=== PATIENT | female | born 1945 | race Caucasian/White ===

== ENCOUNTER 2016-07-24 16:11 | Observation (INO) | payer MEDICARE, OTHER ==
[2016-07-24] MEDS ORDERED: Sodium Chloride 0.9% 10 ML Syringe FLUSH PRN ×2 (16:31→20:20)
--- NOTE | 2016-07-24 16:34 | EDM.PDOC ---
[id number] 4d illness Time Seen by Provider: 07/24/16 16:34 Source: Reports: Patient, Family History Limitations: Reports: No limitations - History of Present Illness INITIAL COMMENTS - FREE TEXT/NARRATIVE: pt arrived giving a history that everytime she walks or exercises that she gets chest pain. She is pain free at this time. Pt had a fairly extended episode of chest pain yesterday when she was working at [employer] and she took the gargage out. Timing/Duration: Reports: Hour(s):, Other (pt has not had chest pain today. Dr abad sent the pt from the clinic to finish the workup and possibly transfer or admit. ) Location, General: Reports: head, chest Quality: Reports: Sharp, Stabbing, Other (Pt does not get sweaty when she gets the pain. ) Associated Symptoms: Reports: chest pain, shortness of breath, other ( She is sob when she has the pain. She did have a chest xray at the clinic which was normal. ) - Related Data Allergies/ADRs: Allergies Allergy/AdvReac Type Severity Reaction Status Date / Time latex Allergy Blisters Verified 03/05/15 08:07 tramadol Allergy Hallucinati Verified 03/05/15 08:07 ons Home Meds: Home Meds Hydrochlorothiazide 25 mg PO DAILY 11/09/14 [History] Estropipate 0.75 mg PO DAILY 03/02/15 [History] Levothyroxine [Synthroid] 100 mcg PO DAILY 03/02/15 [History] Aspirin 81 mg PO DAILY tab.chew 07/25/16 [Rx] Enoxaparin [Lovenox] 40 mg SUBCUT BEDTIME syringe 07/25/16 [Rx] Metoprolol Tartrate [Lopressor] 50 mg PO Q12H tablet 07/25/16 [Rx] Nitroglycerin [IJP: Nitroglycerin] 0.4 mg SL Q5M PRN #0 tablet, sublingual 07/25 [Rx] Past Medical History Cardiovascular History: Reports: Hypertension Endocrine/Metabolic History: Reports: Hypothyroidism - Past Surgical History Other Female Surgeries/Procedures: Partial hysterectomy Social & Family History - Tobacco Use Smoking Status *Q: Former Smoker Years of Tobacco use: 40 Packs/Tins Daily: 0.3 Used Tobacco, but Quit: Yes Month Tobacco Last Used: 04/1998 Second Hand Smoke Exposure: No - Caffeine Use Caffeine Use: Reports: Coffee - Recreational Drug Use Recreational Drug Use: No ED ROS GENERAL - Review of Systems Review Of Systems: See Below ED EXAM, GENERAL - Physical Exam Exam: See Below Free Text/Narrative:: Pt arrived with acute pain in the left chest which occurs when she exercises. She is painfree at this time. Pt was sent over by Dr abad who had talked to Dr Coleman before she left the clinic. She had an elevated cpk and he wanted a ckmb. Exam Limited By: No limitations General Appearance: alert, anxious Ears: normal TMs Nose: normal inspection Throat/Mouth: Normal inspection Head: atraumatic Neck: normal inspection Respiratory/Chest: no respiratory distress Cardiovascular: regular rate, rhythm, other ( Pt is painfree at this time. ) GI/Abdominal: soft, non tender (Female) Exam: Deferred Rectal (Female) Exam: Deferred Back Exam: normal inspection Extremities: normal inspection Neurological: alert, oriented, normal cognition Course - Vital Signs Last Recorded V/S: Last Vital Signs Temp 36.5 C 07/25/16 12:45 Pulse 72 07/25/16 14:43 Resp 16 07/25/16 12:45 BP 157/93 H 07/25/16 14:43 Pulse Ox 96 07/25/16 12:45 - Orders/Labs/Meds Labs: Laboratory Tests 07/24/16 07/24/16 Range/Units 16:31 16:45 Creatine Kinase 256 H (26-192) U/L Troponin I < 0.017 (0.000-0.056) ng/mL TSH, Ultra Sensitive 1.732 (0.358-3.740) uIU/mL Meds: Medications Discontinued Medications Generic Name Dose Route Start Last Admin Trade Name Freq PRN Reason Stop Dose Admin Acetaminophen 650 mg 07/24/16 20:20 Tylenol PO Q4H PRN Pain (Mild 1-3)/fever Al Hydroxide/Mg Hydroxide 30 ml 07/24/16 20:20 Mag-Al Plus PO Q4H PRN Heartburn Aspirin 324 mg 07/24/16 18:41 07/24/16 18:55 Aspirin PO 07/24/16 18:42 324 mg ONETIME ONE Administration Aspirin 81 mg 07/25/16 09:00 07/25/16 13:14 Aspirin PO Not Given DAILY [facility] Enoxaparin Sodium 40 mg 07/24/16 22:30 07/24/16 23:06 Lovenox SUBCUT 40 mg BEDTIME MARITZA Administration Estropipate 0.75 mg 07/25/16 09:00 07/25/16 13:14 Estropipate PO Not Given DAILY MARITZA Hydrochlorothiazide 25 mg 07/25/16 09:00 07/25/16 13:15 Hydrochlorothiazide PO 25 mg DAILY MARITZA Administration Levothyroxine Sodium 100 mcg 07/25/16 07:30 07/25/16 13:14 Synthroid PO Not Given ACBREAKFAST [facility] Metoprolol Tartrate 50 mg 07/25/16 15:00 07/25/16 14:43 Lopressor PO 50 mg Q12H MARITZA Administration Morphine Sulfate 2 mg 07/24/16 20:20 Morphine IVPUSH Q30M PRN Pain (severe 7-10) Nitroglycerin 0.4 mg 07/24/16 20:20 Nitrostat SL Q5M PRN Chest Pain Ondansetron HCl 4 mg 07/24/16 20:20 Zofran IV Q4H PRN Nausea/Vomiting Oxycodone HCl 5 mg 07/24/16 20:20 Oxycodone PO Q4H PRN Pain (moderate 4-6) Pantoprazole Sodium 40 mg 07/24/16 20:20 07/25/16 13:14 Protonix PO Not Given ACBREAKFAST [facility] Sodium Chloride 10 ml 07/24/16 16:31 07/24/16 17:14 Saline Flush FLUSH 10 ml ASDIRECTED PRN Administration Keep Vein Open Sodium Chloride 10 ml 07/24/16 20:20 Saline Flush FLUSH ASDIRECTED PRN Keep Vein Open - Re-Assessments/Exams Free Text/Narrative Re-Assessment/Exam: 07/24/16 18:45 Dr Abad sent pt from the clinic for admission or transfer. Her ckmb was elevated at 6.7--borderline. Her chest xray was normal. Her trop was normal. 07/24/16 18:47 This was discussed with both Dr Coleman and Dr abad and a decision was made to admit her and stress her. Departure - Departure Time of Disposition: 18:48 Disposition: Admitted As Inpatient 64 Reason for Transfer *Q: Primary PCI Indicated Condition: fair Clinical Impression: Unstable angina
[2016-07-24] MEDS ORDERED: Aspirin 81 MG Tab.Chew PO ONE (18:41)
--- NOTE | 2016-07-24 19:49 | PCM.HP ---
H&P History of Present Illness - General Date of Service: 07/24/16 Admit Problem/Dx: Admission Diagnosis/Problem Admission Diagnosis/Problem Chest pain Source of Information: Patient, Provider, RN notes reviewed History Limitations: Reports: No limitations - History of Present Illness Initial Comments - Free Text/Narative: This patient is a 70-year-old woman who is admitted through the emergency department to observation status for further evaluation and management of chest pain. She denies any preceding history of coronary artery disease, reports that she had a coronary angiogram approximately 20 years ago that was interpreted as negative. Over the past 5 weeks has developed exertional chest pressure, pain occurs in the central chest and radiates to the back. Over the course of the past 5 weeks she is noted that the pain has started to come on with lower levels of exertion and lasts longer with higher level of intensity. All of the episodes have occurred with activity and she reports symptoms as being very intense. She has noted associated nausea as well as shortness of breath. Over the past few days the pain seems to be worse and in addition to radiate to the back she is noted some pain in her right jaw and right arm. She has had no rest pain and no nocturnal pain to this point. Other than activity she is noted no precipitating or relieving factors. Risk factors for coronary artery disease include a [id number] smoking history, she quit smoking approximately 10 years ago. Other risk factors include hypercholesterolemia, hypertension, and a strongly positive family history. - Related Data Allergies/Adverse Reactions: Allergies Allergy/AdvReac Type Severity Reaction Status Date / Time latex Allergy Blisters Verified 03/05/15 08:07 tramadol Allergy Hallucinati Verified 03/05/15 08:07 ons Home Medications: Home Meds Hydrochlorothiazide 25 mg PO DAILY 11/09/14 [History] Estropipate 0.75 mg PO DAILY 03/02/15 [History] Levothyroxine [Sythroid] 100 mcg PO DAILY 03/02/15 [History] Past Medical History Cardiovascular History: Reports: Hypertension Endocrine/Metabolic History: Reports: Hypothyroidism - Past Surgical History Other Female Surgeries/Procedures: Partial hysterectomy Social & Family History - Tobacco Use Smoking Status *Q: Former Smoker Years of Tobacco use: 40 Packs/Tins Daily: 0.3 Used Tobacco, but Quit: Yes Month Tobacco Last Used: 04/1998 Second Hand Smoke Exposure: No - Caffeine Use Caffeine Use: Reports: Coffee - Recreational Drug Use Recreational Drug Use: No H&P Review of Systems - Review of Systems: Review Of Systems: See Below General: Reports: no symptoms HEENT: Reports: no symptoms Pulmonary: Reports: No Symptoms Cardiovascular: Reports: chest pain. Denies: palpitations, dyspnea on exertion , orthopnea, PND, edema, lightheadedness, syncope Gastrointestinal: Reports: No symptoms Genitourinary: Reports: no symptoms Musculoskeletal: Reports: no symptoms Skin: Reports: no symptoms Psychiatric: Reports: no symptoms Neurological: Reports: No Symptoms Hematologic/Lymphatic: Reports: no symptoms Immunologic: Reports: no symptoms Exam - Exam Exam: See Below - Vital Signs Vital Signs: Last Vital Signs Temp 97.9 F 07/24/16 16:52 Pulse 62 07/24/16 18:21 Resp 20 07/24/16 18:21 BP 185/88 H 07/24/16 18:21 Pulse Ox 94 L 07/24/16 18:21 Weight: 180 lb - Exam Quality Assessment: DVT prophylaxis General: alert, oriented, cooperative HEENT: Conjunctiva clear, EOMI, Hearing intact, Mucosa moist & pink, Nares patent, Normal nasal septum, Posterior pharynx clear, Pupils equal, Pupils reactive Neck: supple, trachea midline, +2 carotid pulse wo bruit Lungs: Clear to auscultation, Normal respiratory effort Cardiovascular: regular rate, regular rhythm, normal S1, normal S2, systolic murmur. No: diastolic murmur Abdomen: normal bowel sounds, soft Back Exam: normal inspection, full range of motion, NT Extremities: 3, normal inspection, 10 Skin: warm, dry, intact Neurological: cranial nerves intact, strength equal bilateral, normal speech, normal tone, sensation intact. No: focal deficit Neuro Extensive - Mental Status: alert, oriented x3, normal mood/affect, normal cognition, memory intact - Patient Data Lab Results last 24 hrs: Laboratory Results - last 24 hr 07/24/16 07/24/16 Range/Units 16:31 16:45 Creatine Kinase 256 H (26-192) U/L Troponin I < 0.017 (0.000-0.056) ng/mL TSH, Ultra Sensitive 1.732 (0.358-3.740) uIU/mL *Q Meaningful Use (ADM) - VTE *Q VTE Criteria *Q: - VTE Risk Assess *Q Each Risk Factor Represents 1 Point: Obesity (BMI greater than 30) Total Score 1 Point Risk Factors: 1 Each Risk Factor Represents 2 Points: Age 60 - 74 Years Total Score 2 Point Risk Factors: 2 Each Risk Factor Represents 3 Points: None Total Score 3 Point Risk Factors: 0 Each Risk Factor Represents 5 Points: None Total Score 5 Point Risk Factors: 0 Venous Thromboembolism Risk Factor Score *Q: 3 - Stroke *Q Stroke Criteria *Q: - AMI *Q AMI Criteria *Q: Problem List Initiated/Reviewed/Updated: Yes Orders Last 24hrs: Active Orders 24 hr Category Date Time Status Patient Status Manage Transfer [TRANSFER] Routine ADT 07/24/16 19:31 Active Cardiac Monitoring [RC] .As Directed Care 07/24/16 19:31 Active EKG Documentation Completion [RC] ASDIRECTED Care 07/24/16 16:34 Active Saline Lock Insert [OM.PC] Routine Oth 07/24/16 16:31 Ordered Resuscitation Status Routine Resus Stat 07/24/16 19:32 Ordered EKG 12 Lead [EK] Routine Ther 07/24/16 16:34 Ordered Assessment/Plan Comment:: ASSESSMENT AND PLAN EXERTIONAL CHEST PAIN-symptoms have occurred over the last 5 weeks am a and seem to be progressing, now occurring at lower levels of activity with increased intensity and duration. At this point has not had rest pain or nocturnal pain. She has several risk factors including a [id number] smoking history(stopped smoking 10 years ago), hypertension, strongly positive family history, and hypercholesterolemia. -Serial troponin levels -Exercise Cardiolite study in the a.m. -Aspirin 81 mg daily HYPERTENSION -Monitor blood pressure during hospital stay -Continue outpatient medications HYPERCHOLESTEROLEMIA -Continue outpatient statin therapy MAINTENANCE ISSUES -DVT prophylaxis; Lovenox 40 mg by mouth daily -GI prophylaxis; Protonix 40 mg by mouth daily -Ferrara catheter; not indicated -Nutrition; regular diet -Nicotinic dependence; not required CODE STATUS-FULL CODE ADMISSION STATUS-this patient will be admitted to observation status, expect no more than a one night hospital stay for evaluation and management of problems as outlined above. DISPOSITION-anticipate discharge to home after the hospital stay. PRIMARY CARE PROVIDER-Dr. Abad
[2016-07-24] MEDS ORDERED: Nitroglycerin 0.4 MG Tab.SL SL PRN (20:20)
[2016-07-24] MEDS ORDERED: Acetaminophen 325 MG Tab PO PRN (20:20)
[2016-07-24] MEDS ORDERED: Ondansetron 4 MG/2 ML SDV IV PRN (20:20)
[2016-07-24] MEDS ORDERED: Aluminum Hydroxide/Magnesium Hydroxide/Simethicone Susp 30 ML Cup PO PRN (20:20)
[2016-07-24] MEDS ORDERED: oxyCODONE 5 MG Tab PO PRN (20:20)
[2016-07-24] MEDS ORDERED: Morphine 2 MG/ML Syringe IVPUSH PRN (20:20)
[2016-07-24] MEDS ORDERED: Enoxaparin 40 MG/0.4 ML Syringe SUBCUT SCH (22:30)
[2016-07-24] MEDS: Pantoprazole 40 MG Tab.CR PO SCH (23:07)
[2016-07-25] MEDS ORDERED: Levothyroxine 100 MCG Tab PO SCH (07:30)
[2016-07-25] MEDS ORDERED: Hydrochlorothiazide 25 MG Tab PO SCH (09:00)
[2016-07-25] MEDS ORDERED: Aspirin 81 MG Tab.Chew PO SCH (09:00)
--- NOTE | 2016-07-25 13:04 | NM ---
Myocardial Perf Spect Multi HISTORY: Chest pain Rest SPECT cardiac imaging was obtained following intravenous administration of 11.1 mCi of Tc 99m M yoview. At peak exercise, 29.5 mCi of Tc 99m Myoview were administered intravenously and stress SPECT cardia c imaging was obtained. FINDINGS: On the stress images there is a large perfusion defect involving the distal aspect of the anterior and lateral saucedo left ventricle. Much of this reperfuses on the rest images consistent wit h reversible ischemia. There are small fixed perfusion defects at the anteroseptal wall and inferior lateral wall left ventricle distally. No other perfusion abnormalities identified. Left ventricular wall motion appears satisfactory. Calculated left ventricular ejection fraction is 50% on the rest images and 47% on the stress imagin g. IMPRESSION: 1. Fairly prominent area of reversible ischemia distal anterior to anterolateral wall left ventricle . 2. Small fixed defects consistent infarct are seen at the distal anteroseptal wall and distal inferi or lateral wall left ventricle. 2. Calculated left ventricular ejection fraction is 50% on the rest images and 47% on the stress lia ging.
[2016-07-25] MEDS: Pantoprazole 40 MG Tab.CR PO SCH (13:14)
--- NOTE | 2016-07-25 14:39 | STRESS ---
DATE OF SERVICE: 07/25/2016 PROCEDURE PERFORMED: Exercise Cardiolite study. INDICATION: Recent exertional chest pain. TECHNIQUE: Ms. Salinas is a 70-year-old woman. She was exercised for 3 minutes and 39 seconds on the Riaz protocol for the exercise portion of the exercise Cardiolite study. She completed 39 seconds of stage II at 2.5 miles/hour and 12 degrees elevation. Test was stopped secondary to symptoms of chest pain and having reached greater than 85% of predicted maximal heart rate. She reached a rate pressure product of 25,600 and a workload of 4.6 METS. Resting heart rate was 73 and went to 136 with exercise. This was equal to 92% of predicted maximal heart rate. Resting blood pressure was 175/92 and went to 235/93 with exercise. Resting ECG; sinus rhythm, rate of 61, normal axis and intervals. There is very slight ST-segment depression present in the lateral leads and also in the inferior leads. Similar findings were noted on the post hyperventilation and standing ECGs. Frequent premature ventricular complexes were noted throughout the test, occasionally occurring in a bigeminal pattern. With exercise, she developed symptoms of chest pain even during the first stage of the Riaz protocol. At the end of the exercise, she had 2-[address]-segment depression in the lateral leads,1-[address]-segment depression in the anterior leads, and [address]-segment depression in the inferior leads. Her pain resolved after exercise, did not require reversal. IMPRESSION: Early positive treadmill exercise portion of the exercise Cardiolite study. She was able to reach greater than 85% of predicted maximal heart rate at this limited level of exercise. Jaron Telles MD /[id number]
[2016-07-25 14:43] VITALS: BP 157/93
--- NOTE | 2016-07-25 14:59 | PCM.DCSUM1 ---
Discharge Summary - Hospital Course Brief History: Ms. Salinas is a 70-year-old woman who is admitted to observation status through the emergency department for further evaluation and management of chest pain. - Discharge Data Discharge Date: 07/25/16 Discharge Disposition: DC/Tfer to Acute Hospital 02 Condition: Good - Discharge Diagnosis/Problem(s) (1) Unstable angina SNOMED Code(s): 5637678 ICD Code: I20.0 - UNSTABLE ANGINA Status: Acute Current Visit: Yes - Patient Summary/Data Hospital Course: Ms. Salinas is a 70-year-old woman who was admitted through the emergency department observation status for further evaluation and management of chest pain. For 5 weeks prior to admission she noted exertional chest pressure radiating to her mid back. Over that period of time symptoms progressed with increased duration, intensity, and decreased level of activity required to produce the symptoms. She had one episode of nocturnal chest pain, she felt this was precipitated by a nightmare. Otherwise has had no nocturnal or rest symptoms. She has several risk factors for coronary artery disease including a [id number] smoking history(stopped smoking 10 years ago), hypertension, hypercholesterolemia, and a strongly positive family history. She denies a personal history of diabetes. Over the past few days prior to admission she noted that the symptoms would come on with fairly likely exertion and now noted some radiation of the pain to her right jaw and right arm. On the day of admission and had no further symptoms of chest pain, initial evaluation in the emergency department showed no acute ST segment changes and a normal troponin level. She was admitted to observation status, serial troponin levels were obtained and all were found to be within normal range. On the day of transfer exercise Cardiolite study was obtained. She was only able to exercise for 39 seconds into the second stage of exercise and developed symptoms of chest pain during the first stage of exercise. EKG showed 2-[address] segment depression in the lateral leads, 1-[address] segment depression in the anterior leads, and [address] segment depression in the inferior leads. Cardiolite portion the study showed a decrease in ejection fraction with exercise as well as a relatively large area of ischemia in the anterolateral wall. There were 2 small areas of fixed perfusion defect felt to represent previous infarcts. These findings were reviewed With Dr. Ramirez, department of cardiology, who is recommended the patient be transferred for further evaluation. She will be transferred to [place] via [facility]. - Patient Instructions Diet: Usual Diet as Tolerated Activity: As Tolerated Other/Special Instructions: Patient will be transferred via [facility] to [facility]. - Discharge Plan Home Medications: Home Meds RX: Hydrochlorothiazide 25 mg PO DAILY 11/09/14 [History] RX: Estropipate 0.75 mg PO DAILY 03/02/15 [History] RX: Levothyroxine [Synthroid] 100 mcg PO DAILY 03/02/15 [History] RX: Aspirin 81 mg PO DAILY tab.chew 07/25/16 [Rx] RX: Enoxaparin [Lovenox] 40 mg SUBCUT BEDTIME syringe 07/25/16 [Rx] RX: Metoprolol Tartrate [Lopressor] 50 mg PO Q12H tablet 07/25/16 [Rx] RX: Nitroglycerin [IJP: Nitroglycerin] 0.4 mg SL Q5M PRN #0 tablet, sublingual 07/25/16 [Rx] Referrals: Marvel Abad MD [Primary Care Provider] - - Patient Data Vitals - Most Recent: Last Vital Signs Temp 97.7 F 07/25/16 12:45 Pulse 72 07/25/16 14:43 Resp 16 07/25/16 12:45 BP 157/93 H 07/25/16 14:43 Pulse Ox 96 07/25/16 12:45 Weight - Most Recent: 195 lb I&O - Last 24 hours: Intake & Output 07/24/16 07/25/16 07/25/16 22:59 06:59 14:59 Intake Total 480 100 Balance 480 100 Lab Results - Last 24 hrs: Laboratory Results - last 24 hr 07/24/16 07/24/16 07/25/16 Range/Units 22:02 23:00 05:34 Plt Count 239 (150-400) K/uL Sodium 140 (140-148) mmol/L Potassium 3.8 (3.6-5.2) mmol/L Chloride 103 (100-108) mmol/L Carbon Dioxide 27 (21-32) mmol/L Anion Gap 9.9 (5.0-14.0) mmol/L BUN 23 H (7-18) mg/dL Creatinine 0.9 (0.6-1.0) mg/dL Est Cr Clr Drug Dosing 48.79 mL/min Estimated GFR (MDRD) > 60 (>60) Glucose 139 H (74-106) mg/dL Calcium 8.8 (8.5-10.1) mg/dL Troponin I < 0.017 < 0.017 (0.000-0.056) ng/mL Med Orders - Current: Current Medications Acetaminophen (Tylenol) 650 mg PO Q4H PRN PRN Reason: Pain (Mild 1-3)/fever Al Hydroxide/Mg Hydroxide (Mag-Al Plus) 30 ml PO Q4H PRN PRN Reason: Heartburn Aspirin (Aspirin) 81 mg PO DAILY [facility] Last Admin: 07/25/16 13:14 Dose: Not Given Enoxaparin Sodium (Lovenox) 40 mg SUBCUT BEDTIME [facility] Last Admin: 07/24/16 23:06 Dose: 40 mg Estropipate (Estropipate) 0.75 mg PO DAILY [facility] Last Admin: 07/25/16 13:14 Dose: Not Given Hydrochlorothiazide (Hydrochlorothiazide) 25 mg PO DAILY [facility] Last Admin: 07/25/16 13:15 Dose: 25 mg Levothyroxine Sodium (Synthroid) 100 mcg PO ACBREAKFAST [facility] Last Admin: 07/25/16 13:14 Dose: Not Given Metoprolol Tartrate (Lopressor) 50 mg PO Q12H [facility] Last Admin: 07/25/16 14:43 Dose: 50 mg Morphine Sulfate (Morphine) 2 mg IVPUSH Q30M PRN PRN Reason: Pain (severe 7-10) Nitroglycerin (Nitrostat) 0.4 mg SL Q5M PRN PRN Reason: Chest Pain Ondansetron HCl (Zofran) 4 mg IV Q4H PRN PRN Reason: Nausea/Vomiting Oxycodone HCl (Oxycodone) 5 mg PO Q4H PRN PRN Reason: Pain (moderate 4-6) Pantoprazole Sodium (Protonix) 40 mg PO AC[facility]AKFAST [facility] Last Admin: 07/25/16 13:14 Dose: Not Given Sodium Chloride (Saline Flush) 10 ml FLUSH ASDIRECTED PRN PRN Reason: Keep Vein Open Discontinued Medications Aspirin (Aspirin) 324 mg PO ONETIME ONE Stop: 07/24/16 18:42 Last Admin: 07/24/16 18:55 Dose: 324 mg Sodium Chloride (Saline Flush) 10 ml FLUSH ASDIRECTED PRN PRN Reason: Keep Vein Open Last Admin: 07/24/16 17:14 Dose: 10 ml *Q Meaningful Use (DIS) - VTE *Q VTE Criteria *Q: - Stroke *Q Stroke Criteria *Q: - AMI *Q AMI Criteria *Q:
[2016-07-25] MEDS ORDERED: Metoprolol Tartrate 50 MG Tab PO SCH (15:00)
== END 2016-07-25 15:25 ==
LOC: JP.ED 16:11 → JP.MS 19:31 → JP.ED 19:39
PROVIDERS: ADMIT Hospitalist; ATTEND Hospitalist
DX: I20.0 Unstable angina (principal); I10 Essential (primary) hypertension; E03.9 Hypothyroidism, unspecified; Z79.82 Long term (current) use of aspirin; Z79.899 Other long term (current) drug therapy; Z91.040 Latex allergy status; Z88.8 Allergy status to other drugs, medicaments and biological substances; Z90.710 Acquired absence of both cervix and uterus; Z87.891 Personal history of nicotine dependence
CPT/HCPCS: 36415; 78452; 80048; 82550; 84443; 84484; 85049; 93005; 93017; 99285; A9270; A9500; G0378; J1650; J7050; 93010; 93018; 99284

== ENCOUNTER 2017-01-06 05:32 | Emergency (ER) | payer MEDICARE, OTHER ==
[2017-01-06 05:54] VITALS: BP 170/70
--- NOTE | 2017-01-06 06:19 | EDM.PDOC ---
ED HPI GENERAL MEDICAL PROBLEM - General Chief Complaint: Lower Extremity Injury/Pain Stated Complaint: GOUT PAIN IN RIGHT FOOT Time Seen by Provider: 01/06/17 06:00 Source of Information: Reports: Patient History Limitations: Reports: No Limitations - History of Present Illness INITIAL COMMENTS - FREE TEXT/NARRATIVE: 71-year-old female has an inflammatory reaction in the right MP joint of the large toe. She had a similar flare of pain this summer but it resolved after 10- 12 days, over the past 2 weeks she's had a marked increase in red meat intake and now has another flareup over the past 4 days. It's very tender with any movement, red and swollen. No streaks or fevers or chills. No trauma. Onset: Gradual Duration: Day(s): (4-5 days) Location: Reports: Lower Extremity, Right (The MP joint of the right large toe) Severity: Moderate Improves with: Reports: Other (She has placed some ice on the toe which didn't help) Right 1-Hallux Pain Score (Numeric/FACES): 10 - Related Data Allergies Allergy/AdvReac Type Severity Reaction Status Date / Time latex Allergy Blisters Verified 01/06/17 05:47 tramadol Allergy Hallucinati Verified 01/06/17 05:47 ons Home Meds: Home Meds Hydrochlorothiazide 25 mg PO DAILY 11/09/14 [History] Estropipate 0.75 mg PO DAILY 03/02/15 [History] Levothyroxine [Synthroid] 100 mcg PO DAILY 03/02/15 [History] Aspirin 81 mg PO DAILY tab.chew 07/25/16 [Rx] Nitroglycerin [IJP: Nitroglycerin] 0.4 mg SL Q5M PRN #0 tablet, sublingual 07/25 [Rx] Lisinopril 1.5 tab PO DAILY 12/24/16 [History] atorvaSTATin [Lipitor] 40 mg PO BEDTIME 12/24/16 [History] Clopidogrel Bisulfate [Clopidogrel] 75 mg PO DAILY 01/06/17 [History] Metoprolol Succinate [Toprol Xl] 50 mg PO DAILY 01/06/17 [History] Past Medical History Cardiovascular History: Reports: Angina, CAD, High Cholesterol, Hypertension, SC , Stents Gastrointestinal History: Reports: Colon Polyp, Hemorrhoids Genitourinary History: Reports: None SPRING INTERN History: Reports: Other (See Below) Other OB/BYN History: hysto Musculoskeletal History: Reports: Gout Neurological History: Reports: None Psychiatric History: Reports: None Endocrine/Metabolic History: Reports: Hypothyroidism Hematologic History: Reports: Anticoagulation Therapy - Infectious Disease History Infectious Disease History: Reports: Chicken Pox - Past Surgical History Cardiovascular Surgical History: Reports: Coronary Artery Stent GI Surgical History: Reports: Colonoscopy, Polypectomy Female Surgical History: Reports: Tubal Ligation Other Female Surgeries/Procedures: Partial hysterectomy Musculoskeletal Surgical History: Reports: Arthroscopic Knee Oncologic Surgical History: Reports: Biopsy of Breast Social & Family History - Family History Family Medical History: Noncontributory - Tobacco Use Smoking Status *Q: Never Smoker Years of Tobacco use: 40 Packs/Tins Daily: 0.3 Used Tobacco, but Quit: Yes Month Tobacco Last Used: 04/1998 Second Hand Smoke Exposure: No - Caffeine Use Caffeine Use: Reports: None - Alcohol Use Days Per Week of Alcohol Use: 0 - Recreational Drug Use Recreational Drug Use: No Review of Systems - Review of Systems Review Of Systems: See Below Constitutional: Denies: Fever Respiratory: Denies: Shortness of Breath, Cough Cardiovascular: Denies: Chest Pain GI/Abdominal: Denies: Nausea, Vomiting Skin: Reports: Erythema Neurological: Reports: No Symptoms ED EXAM, GENERAL - Physical Exam Exam: See Below Exam Limited By: No Limitations General Appearance: Alert, No Apparent Distress Respiratory/Chest: No Respiratory Distress Extremities: Other (The MP joint of the right large toe is swollen, reddened and very tender to palpation. The toe has increased pain with any movement or range of motion passively of the MP joint.) Course - Vital Signs Last Recorded V/S: Last Vital Signs Temp 98.1 F 01/06/17 05:52 Pulse 56 L 01/06/17 05:52 Resp 16 01/06/17 05:52 BP 170/70 H 01/06/17 05:52 Pulse Ox 96 01/06/17 05:52 - Re-Assessments/Exams Free Text/Narrative Re-Assessment/Exam: 01/06/17 06:16 This is very typical of an acute flareup of gout of the right large toe MP joint. Patient will be placed on 60 mg of prednisone daily for 5 days along with 10 mg of ketorolac 2-3 times daily. Gentle warmth to the area may help and I also gave her 6 Vicodin to use for extra pain control. She should recheck if worsening such as fever or red streaks extending from the area. She can also recheck in 3-4 days if not improving satisfactorily. Departure - Departure Time of Disposition: 06:31 Disposition: Home, Self-Care 01 Condition: Good Clinical Impression: Gout Qualifiers: Gout site: foot Gout etiology: other secondary cause Chronicity: acute Laterality: right Qualified Code(s): M10.471 - Other secondary gout, right ankle and foot - Discharge Information Instructions: Low-Purine Diet, Gout, [id number] Referrals: Marvel Abad MD [Primary Care Provider] - Forms: ED Department Discharge Care Plan Goals: Take 6 pills of prednisone with food with your first meal of each of the next 5 days. Ketorolac one pill every 6-8 hours will also help, and you can use stronger pain medication for the first 24 hours as prescribed. Warm compresses and elevation of the foot may help. Recheck in 2-3 days if not improving satisfactorily or return sooner if worsening such as fever or increased redness.
== END 2017-01-06 06:31 | disposition home or self-care (01) ==
LOC: JP.ED 05:32
DX: M10.471 Other secondary gout, right ankle and foot (principal); E78.00 Pure hypercholesterolemia, unspecified; I10 Essential (primary) hypertension; I25.10 Atherosclerotic heart disease of native coronary artery without angina pectoris; E03.9 Hypothyroidism, unspecified; Z88.8 Allergy status to other drugs, medicaments and biological substances; Z95.5 Presence of coronary angioplasty implant and graft; Z79.82 Long term (current) use of aspirin; Z79.899 Other long term (current) drug therapy; Z98.51 Tubal ligation status; Z91.040 Latex allergy status; Z90.710 Acquired absence of both cervix and uterus
CPT/HCPCS: 99283